=== PATIENT | male | born 1980 | race African-American/Black ===

== ENCOUNTER 2016-10-22 22:42 | Emergency (ER) | payer MEDICAID ==
[~2016-10-22] VITALS: Ht 172.7 cm; Wt 63.5 kg
[~2016-10-22 22:42] MED LIST: IBUPROFEN600 MG ORAL; NKM
[2016-10-22 22:54] VITALS: BP 129/80
--- NOTE | 2016-10-22 23:44 | Emergency Room Report ---
History of Present Illness General Chief Complaint: General Complaint Source: Patient Present Illness HPI This is a 36-year-old male with no past medical history. He presents with chief complaint of palpitation. His been having palpitation for the last few months. Worse tonight. More episodes. Also said that he had Y. was examining him. Denies any chest pain. Denies any nausea vomiting. Has normal coffee and marijuana tonight. Denies any other complaint. Allergies: Coded Allergies: No Known Allergies (Unverified , 03/10/16) Patient History Past Medical History: see triage record, old chart reviewed Past Surgical History: none Pertinent Family History: none Social History: Reports: drug use - Marijuana, smoking Immunizations: other Reviewed Nursing Documentation: PMH: Agreed, PSxH: Agreed Nursing Documentation-PMH Past Medical History: No Stated History Review of Systems Eye: Denies: blurred vision, eye pain ENT: Denies: ear pain, nose congestion, throat swelling Respiratory: Denies: cough, shortness of breath Cardiovascular: Reports: palpitations, Denies: chest pain Gastrointestinal: Denies: abdominal pain, diarrhea, nausea, vomiting Musculoskeletal: Denies: back pain, joint pain Skin: Denies: rash Neurological: Denies: headache, numbness Endocrine: Denies: increased thirst, increased urine Hematologic/Lymphatic: Denies: easy bruising All Other Systems: negative except mentioned in HPI Physical Exam Vital Signs Date Time Temp Pulse Resp B/P Pulse Ox O2 Delivery O2 Flow Rate FiO2 10/22/16 22:47 97.5 84 20 129/80 100 Room Air vitals normal Sp02 EP Interpretation: reviewed, normal General Appearance: well appearing, no apparent distress, alert Head: normocephalic, atraumatic Eyes: bilateral eye EOMI, bilateral eye PERRL ENT: hearing grossly normal, normal pharynx Neck: full range of motion, supple, no meningismus Respiratory: chest non-tender, lungs clear, normal breath sounds Cardiovascular #1: regular rate, rhythm, no murmur Gastrointestinal: normal bowel sounds, non tender, no mass, no organomegaly, no bruit, non-distended Musculoskeletal: back normal, gait/station normal, normal range of motion Psychiatric: mood/affect normal Skin: warm/dry Medical Decision Making Diagnostic Impression: Primary Impression: Palpitations ER Course Patient present with palpitation. No evidence of arrhythmia. No evidence of ACS, PE, dissection. EKG is normal here. He may need a Holter monitor. EKG Diagnostic Results Rate: normal Rhythm: NSR ST Segments: no acute changes Last Vital Signs Date Time Temp Pulse Resp B/P Pulse Ox O2 Delivery O2 Flow Rate FiO2 10/22/16 22:54 97.5 84 20 129/80 100 Room Air Status: improved Disposition: HOME, SELF-CARE Condition: Stable Referrals: [facility],REFERRING (PCP) Additional Instructions: Followup with your DrMikhail within a week. You may need a referral to see a thermospray operator for Holter monitor. Return if worse. CHELSEA JEFFERSON M.D. Oct 22, 2016 23:44
[2016-10-22 23:45] VITALS: BP 129/80
--- NOTE | 2016-11-24 03:26 | Cardiology Report ---
APPROVED REPORT EKG Measurement Heart [id number] ME [id number] Sinus bradycardia Otherwise normal ECG
== END 2016-10-22 23:48 | disposition home or self-care (01) ==
LOC: EMR 23:28
DX: R00.2 Palpitations (principal); F17.200 Nicotine dependence, unspecified, uncomplicated; F12.10 Cannabis abuse, uncomplicated
CPT/HCPCS: 93005; 99283